=== PATIENT | male | born 1980 | race Caucasian/White ===

== ENCOUNTER 2020-09-07 16:10 | Emergency (ER) | payer SELFPAY ==
[2020-09-07] MEDS ORDERED: Ketorolac Tromethamine 30 MG/ML VIAL ONE (18:16)
[2020-09-07] MEDS ORDERED: Cyclobenzaprine 10 MG TAB ONE ×2 (18:16→18:19)
== END 2020-09-07 19:09 | disposition home or self-care (01) ==
LOC: ERS 16:10
DX: M54.2 Cervicalgia (principal); R20.0 Anesthesia of skin; B20 Human immunodeficiency virus [HIV] disease; F17.200 Nicotine dependence, unspecified, uncomplicated
CPT/HCPCS: 96372; 99283; J1885

== ENCOUNTER 2021-03-12 17:50 | Emergency (ER) | payer SELFPAY ==
[2021-03-12] MEDS ORDERED: Dexamethasone 10 MG/ML VIAL ONE (19:27)
[2021-03-12] MEDS ORDERED: Dexamethasone 4 mg/ml Vial ONE (19:35)
== END 2021-03-12 19:55 | disposition home or self-care (01) ==
LOC: ERS 17:50
DX: G89.29 Other chronic pain (principal); M54.2 Cervicalgia; F17.210 Nicotine dependence, cigarettes, uncomplicated; Z21 Asymptomatic human immunodeficiency virus [HIV] infection status
CPT/HCPCS: 96372; 99283; J1100

== ENCOUNTER 2022-04-18 08:43 | Emergency (ER) | payer OTHER | END 2022-04-18 10:07 | disposition home or self-care (01) | LOC: ERS 08:43 | DX: M79.89 Other specified soft tissue disorders (principal) ==